=== PATIENT | female | born 1975 | race Two or more races ===

== ENCOUNTER 2017-06-19 18:20 | Emergency (ER) | payer OTHER ==
[~2017-06-19] VITALS: Ht 175.3 cm; Wt 90.7 kg
== END 2017-06-19 22:54 | disposition home or self-care (01) ==
LOC: ER 18:20
DX: K29.70 Gastritis, unspecified, without bleeding (principal)

== ENCOUNTER 2019-09-30 21:58 | Emergency (ER) | payer OTHER ==
[~2019-09-30] VITALS: Ht 175.3 cm; Wt 90.7 kg
[2019-09-30] MEDS ORDERED: CIPRO500 MG PO (23:40)
== END 2019-10-01 00:10 | disposition home or self-care (01) ==
LOC: ER 21:58
DX: S61.421A Laceration with foreign body of right hand, initial encounter (principal); W26.0XXA Contact with knife, initial encounter; Y93.G3 Activity, cooking and baking; Y92.89 Other specified places as the place of occurrence of the external cause; Y99.8 Other external cause status

== ENCOUNTER 2021-09-23 12:08 | Outpatient (CLI) | payer OTHER ==
[~2021-09-23 12:08] MED LIST: CIPRO500 MG PO
== END 2021-09-23 12:13 | disposition home or self-care (01) ==
LOC: RAD 12:08
PROVIDERS: ATTEND Colon & Rectal Surgery
DX: S93.439A Sprain of tibiofibular ligament of unspecified ankle, initial encounter (principal)

== ENCOUNTER 2025-01-16 09:57 | Emergency (ER) | payer OTHER ==
[~2025-01-16] VITALS: Ht 167.6 cm; Wt 90.7 kg
[2025-01-16] MEDS ORDERED: NORVASC2.5 M1 PO (10:56)
[2025-01-16] MEDS ORDERED: TOPROL XL50 M1 PO (10:57)
[2025-01-16] MEDS ORDERED: ONDANSETRON HCL 2 MG/ML VIAL IV ONE (12:15)
[2025-01-16] MEDS ORDERED: 0.9 % SODIUM CHLORIDE 500 ML IV SCH (12:15)
[2025-01-16] MEDS ORDERED: MORPHINE SULFATE 4 MG/ML CARTRIDGE IV ONE ×2 (12:15→19:15)
[2025-01-16] MEDS ORDERED: FAMOTIDINE/PF 20 MG/2 ML VIAL IV ONE (12:15)
[2025-01-16 13:26] LABS: BASO % 0.5 % (0.1-1.2); EOS # 0.08 (0.04-0.54); EOS % 0.8 % (0.7-7.0); LYMPH # 2.67 (1.18-3.74); LYMPH % 25.6 % (19.3-53.1); MEAN PLATELET VOLUME 10.30 fl (9.4-12.4); MONO # 0.38 (0.24-0.82); MONO % 3.7 % (4.7-12.5); NEUT # 7.19 (1.56-6.13); NEUT % 69.0 % (34.0-71.1); RED CELL DISTRIBUTION WIDTH 18.3 % (11.6-14.4)
[2025-01-16 13:28] LABS: ERYTHROCYTE SEDIMENTATION RATE 44 mm/hr (0-20)
[2025-01-16 13:45] LABS: INR 1.01
[2025-01-16 13:53] LABS: ALT/SGPT 28 U/L (12-78); AST/SGOT 16 U/L (15-37); BILIRUBIN TOTAL 0.25 mg/dL (0.3-1.2); BUN CREA RATIO 14 (7.0-25.0); CREATININE SERUM 0.83 mg/dL (0.55-1.02); GFR 72.77; GLOBULINA 3.7 G/DL (2.4-3.5); GLUCOSE FASTING 108 mg/dL (65-100); HCG QUANTITATIVE < 1 mUI/mL (1-3); OSMOLALITY SERUM 283 MOSM/KG (275-295)
[2025-01-16 18:38] LABS: URINE APPEARANCE Clear; URINE BILIRRUBIN Negative (NEGATIVE); URINE BLOOD Large; URINE COLOR Red; URINE GLUCOSE Negative (NEGATIVE); URINE KETONE Negative (NEGATIVE); URINE LEUKOCYTE Small; URINE NITRATE Negative; URINE PROTEIN 30 (NEGATIVE); URINE UROBILINOGEN 1.0 E.U./dl
[2025-01-16 18:44] LABS: URINE BACTERIA 148.7 uL (0.0-1933); URINE EPITHELIAL CELLS 9.6 uL (0.0-38.8); URINE WBC 104.3 uL (0.0-23.2)
[2025-01-16 18:52] LABS: URINE CAST 0.14 uL (0.0-1.40); URINE RBC > 10558.9 uL (0.0-20.8)
[2025-01-16] MEDS ORDERED: KETO10TA2 PO (19:59)
== END 2025-01-16 20:43 | disposition home or self-care (01) ==
LOC: ER 09:58
DX: D25.0 Submucous leiomyoma of uterus (principal); N85.2 Hypertrophy of uterus; R10.20 Pelvic and perineal pain unspecified side; I10 Essential (primary) hypertension